=== PATIENT | female | born 1960 | race African-American/Black ===

== ENCOUNTER 2017-07-08 23:12 | Emergency (ER) | payer SELFPAY ==
[~2017-07-08] VITALS: Ht 160 cm; Wt 73.0 kg
[2017-07-09] MEDS ORDERED: SODIUM CHLORIDE 0.9% 1,000 ML IV ONE (00:45)
[2017-07-09 01:04] LABS: BASOPHILS % 0.3 % (0.0-2.0); EOSINOPHILS % 2.2 % (0.0-5.0); HEMATOCRIT. 39.4 % (36.0-48.0); HEMOGLOBIN. 13.3 g/dL (12.0-16.0); LYMPHOCYTES % 46.6 % (20.0-50.0); MEAN CORPUSCULAR VOLUME 89.1 fL (81.0-99.0); NEUTROPHILS % 42.9 % (40.0-76.0); RED BLOOD CELL COUNT 4.42 mill/uL (4.2-5.4); RED CELL DISTRIBUTION WIDTH 14.1 % (11.6-14.6)
[2017-07-09 01:11] LABS: PARTIAL THROMBOPLASTIN TIME 26.7 sec (23.4-31.0); PROTHROMBIN TIME 10.8 sec (9.4-11.6)
[2017-07-09 01:22] LABS: CARBON DIOXIDE 26 mEq/L (21-32); CHLORIDE 106 mEq/L (98-107); TROPONIN I < 0.02 ng/mL (0.00-0.04)
[2017-07-09 02:06] LABS: PLATELET 185 x1000/uL (130-400)
[2017-07-09] MEDS ORDERED: MECLIZINE 25MG TABLET PO ONE (03:30)
[2017-07-09 04:34] VITALS: BP 147/90
== END 2017-07-09 04:37 | disposition home or self-care (01) ==
LOC: ER 23:12
DX: R42 Dizziness and giddiness (principal); Y93.G1 Activity, food preparation and clean up; I10 Essential (primary) hypertension
CPT/HCPCS: 36415; 70450; 71010; 80053; 83690; 84484; 85025; 85610; 85730; 93005; 96360; 99285; J7030; Z7610; J8597